=== PATIENT | male | born 1955 | race Caucasian/White ===

== ENCOUNTER → 2016-12-17 | Outpatient (CLI) | payer OTHER | LOC: MRI 13:00 → EMI 14:00 | DX: C15.9 Malignant neoplasm of esophagus, unspecified (principal); M51.36 Other intervertebral disc degeneration, lumbar region; M99.73 Connective tissue and disc stenosis of intervertebral foramina of lumbar region; M99.74 Connective tissue and disc stenosis of intervertebral foramina of sacral region; M54.5 Low back pain | CPT/HCPCS: 36415; 70553; 72158; A9577 ==

== ENCOUNTER → 2017-01-25 | Outpatient (CLI) | payer OTHER ==
[2017-01-25 13:42] LABS: BUN/CREATININE RATIO 27 (0-10)
== END ==
LOC: OPSV2 11:43
PROVIDERS: Orthopaedic Surgery
DX: Z01.810 Encounter for preprocedural cardiovascular examination (principal); Z01.812 Encounter for preprocedural laboratory examination; M89.9 Disorder of bone, unspecified; I10 Essential (primary) hypertension; E78.5 Hyperlipidemia, unspecified; K21.9 Gastro-esophageal reflux disease without esophagitis; I71.9 Aortic aneurysm of unspecified site, without rupture; C64.9 Malignant neoplasm of unspecified kidney, except renal pelvis; Z95.1 Presence of aortocoronary bypass graft; Z79.891 Long term (current) use of opiate analgesic; Z79.899 Other long term (current) drug therapy
CPT/HCPCS: 36415; 80048; 93005

== ENCOUNTER → 2017-01-28 | Outpatient (CLI) | payer OTHER | LOC: CT 09:16 | DX: M53.3 Sacrococcygeal disorders, not elsewhere classified (principal); Z85.53 Personal history of malignant neoplasm of renal pelvis | CPT/HCPCS: 77012; 88341; 88342 ==

== ENCOUNTER → 2017-02-05 | Outpatient (CLI) | payer OTHER | LOC: MRI 13:34 | DX: C79.51 Secondary malignant neoplasm of bone (principal); Z53.9 Procedure and treatment not carried out, unspecified reason ==